=== PATIENT | female | born 1965 | race Caucasian/White ===

== ENCOUNTER 2018-06-08 15:52 | Emergency (ER) | payer BC ==
--- NOTE | 2018-06-08 17:08 | EDM.PDOC ---
ED HPI GENERAL MEDICAL PROBLEM - General Chief Complaint: Lower Extremity Injury/Pain Stated Complaint: LEFT FOOT INJURY Time Seen by Provider: 06/08/18 16:47 Source of Information: Reports: Patient History Limitations: Reports: No Limitations - History of Present Illness INITIAL COMMENTS - FREE TEXT/NARRATIVE: 52-year-old female presents for evaluation and treatment of injury to the left foot. Patient reports last night she had a few drinks. Reports she was walking around her house when she jammed her left foot into a door frame. She is reporting pain with ambulation. She has also appreciated bruising and swelling to the left foot fifth digit and distal metatarsal. She denies any numbness or tingling. No previous injury to the left foot or ankle. Location: Reports: Lower Extremity, Left Left Feet Pain Score (Numeric/FACES): 9 Past Medical History Other [employer] History: hysterectomy and 3 c sections - Past Surgical History Musculoskeletal Surgical History: Reports: Other (See Below) Other Musculoskeletal Surgeries/Procedures:: 2 back fusions and carpal tunnel surgery Social & Family History - Tobacco Use Smoking Status *Q: Never Smoker - Caffeine Use Caffeine Use: Reports: Coffee - Recreational Drug Use Recreational Drug Use: No Review of Systems - Review of Systems Review Of Systems: See Below Musculoskeletal: Reports: Foot Pain (left foot) Skin: Reports: Bruising (left foot 5th phalnex and distal 5th metatarsal). Denies: Wound Neurological: Reports: Difficulty Walking (due to left foot pain). Denies: Numbness, Tingling ED EXAM, GENERAL - Physical Exam Exam: See Below Exam Limited By: No Limitations General Appearance: Alert, WD/WN, No Apparent Distress Respiratory/Chest: No Respiratory Distress Cardiovascular: Normal Peripheral Pulses, Regular Rate, Rhythm Peripheral Pulses: 2+: Posterior Tibial (L), Posterior Tibial (R), Dorsalis Pedis (L), Dorsalis Pedis (R) Extremities: Normal Capillary Refill, Joint Swelling (left foot 5th digit and distal 5th metatarsal), Other (tenderness to palpation to the left foot 5th digit and the distal 5th metatarsal) Neurological: Alert, Oriented, Normal Cognition Psychiatric: Normal Affect, Normal Mood Skin Exam: Warm, Dry, Normal Color Course - Vital Signs Last Recorded V/S: Last Vital Signs Temp 98.7 F 06/08/18 16:01 Pulse 83 06/08/18 16:01 Resp 14 06/08/18 16:01 BP 111/65 06/08/18 16:01 Pulse Ox 99 06/08/18 16:01 - Orders/Labs/Meds Orders: Active Orders 24 hr Category Date Time Status Foot Comp Min 3V Lt [CR] Stat Exams 06/08/18 16:34 Taken - Radiology Interpretation Free Text/Narrative:: xray of the left foot shows a nondisplaced fracture to the proximal phalanx of the left foot 5th digit - Re-Assessments/Exams Free Text/Narrative Re-Assessment/Exam: 06/08/18 18:04 Reviewed the x-ray results with the patient. Recommend follow-up with orthopedics. They have crutches they will utilize at home. Also placed in a postop shoe. Discharge instructions as documented. Departure - Departure Time of Disposition: 18:04 Disposition: Home, Self-Care 01 Condition: Good Clinical Impression: Toe fracture, left Qualifiers: Encounter type: initial encounter Toe: lesser toe Phalanx: proximal Fracture alignment: nondisplaced - Discharge Information *PRESCRIPTION DRUG MONITORING PROGRAM REVIEWED*: No *COPY OF PRESCRIPTION DRUG MONITORING REPORT IN PATIENT [place]ORRIE: No Instructions: Toe Fracture Referrals: Marbin Powers MD [Primary Care Provider] - Raúl Brown MD [Physician] - Forms: ED Department Discharge, ED Return to Work/School Form Additional Instructions: Ice and elevate the areas much as you were able to. Use the crutches and the postop shoe for your comfort. Follow-up with orthopedics within 2 weeks for recheck of your symptoms. Recommend Dr. He at the [facility]. Call [phone] to schedule him. May also follow-up with Dr. Tee at [place]. Call [phone] to schedule with him. [id number] Tylenol or Motrin seen for pain. For pain not relieved by Tylenol or Motrin may take also take Percocet that you have at home for severe pain. Please return to the ER if your symptoms change or worsen. - My Orders Last 24 Hours: My Active Orders 06/08/18 16:34 Foot Comp Min 3V Lt [CR] Stat - Assessment/Plan Last 24 Hours: My Active Orders 06/08/18 16:34 Foot Comp Min 3V Lt [CR] Stat
--- NOTE | 2018-06-10 14:07 | CR ---
Left foot: Four views of the left foot were obtained. Comparison: No previous foot exam. Fracture noted within the proximal shaft and base of the proximal phalanx of the fifth toe. Alignment is anatomic. No additional fracture or other abnormality is seen. Impression: 1. Nondisplaced fracture involving the proximal phalanx of the left fifth toe as noted above. Diagnostic code #3
== END 2018-06-08 18:59 | disposition home or self-care (01) ==
LOC: JD.ED 15:52
DX: S92.515A Nondisplaced fracture of proximal phalanx of left lesser toe(s), initial encounter for closed fracture (principal); W23.0XXA Caught, crushed, jammed, or pinched between moving objects, initial encounter
CPT/HCPCS: 73630-26-LT; 73630-LT; 99283

== ENCOUNTER 2018-12-21 19:25 | Emergency (ER) | payer SELFPAY ==
--- NOTE | 2018-12-21 19:45 | EDM.PDOC ---
ED HPI GENERAL MEDICAL PROBLEM - General Chief Complaint: Lower Extremity Injury/Pain Stated Complaint: right side hip pain Time Seen by Provider: 12/21/18 19:45 Source of Information: Reports: Patient, RN Notes Reviewed - History of Present Illness INITIAL COMMENTS - FREE TEXT/NARRATIVE: 53-year-old lady comes in with right hip pain. She states she's been having trouble on and off with this since last "July". There is been giving her more trouble again the last several weeks. She states she has had recent x-rays of her hip and also had a CT of her abdomen pelvis about 2 weeks ago. The pain this evening is located outside area of the right hip but then also does radiate toward the right groin. The pain is worse with motion. She states that the prior x-rays "looked okay. Provider is not sure what is causing the discomfort. She does have occasional radiation of pain down the right leg. Not currently having pain radiating to the leg. No peripheral numbness tingling or weakness. No recent injury. Right Hip Pain Score (Numeric/FACES): 10 - Related Data Allergies Allergy/AdvReac Type Severity Reaction Status Date / Time cephalexin [From Keflex] Allergy Rash Verified 12/21/18 19:40 Past Medical History Cardiovascular History: Reports: Other (See Below) Other Cardiovascular History: leaky mitral valve Other [employer] History: hysterectomy and 3 c sections - Past Surgical History HEENT Surgical History: Reports: Adenoidectomy, Tonsillectomy Musculoskeletal Surgical History: Reports: Other (See Below) Other Musculoskeletal Surgeries/Procedures:: 2 back fusions and carpal tunnel surgery Social & Family History - Tobacco Use Smoking Status *Q: Never Smoker - Caffeine Use Caffeine Use: Reports: Coffee - Recreational Drug Use Recreational Drug Use: No Review of Systems - Review of Systems Review Of Systems: See Below Mouth/Throat: Reports: No Symptoms Respiratory: Reports: No Symptoms Cardiovascular: Denies: Chest Pain GI/Abdominal: Denies: Abdominal Pain, Nausea, Vomiting Musculoskeletal: Reports: Back Pain (Chronic), Joint Pain (Right hip) Skin: Denies: Rash Neurological: Denies: Numbness, Tingling, Weakness ED EXAM, GENERAL - Physical Exam Exam: See Below General Appearance: Alert, Anxious, Moderate Distress Eye Exam: Bilateral Eye: PERRL Throat/Mouth: Normal Inspection Head: Atraumatic Neck: Supple Respiratory/Chest: No Respiratory Distress, Lungs Clear, Normal Breath Sounds Cardiovascular: Regular Rate, Rhythm GI/Abdominal: Soft, Non-Tender Extremities: Other (Mild tenderness lateral aspect of the right hip, pelvis is nontender, good range of motion with very mild discomfort). No: Leg Pain ( Thigh knee lower leg all nontender), Increased Warmth, Redness Neurological: Alert, Oriented, No Motor/Sensory Deficits Skin Exam: Warm, Dry, Normal Color, No Rash Course - Vital Signs Last Recorded V/S: Last Vital Signs Temp 97.0 F 12/21/18 19:37 Pulse 61 12/21/18 19:37 Resp 18 12/21/18 19:37 BP 149/70 H 12/21/18 19:37 Pulse Ox 100 12/21/18 19:37 - Orders/Labs/Meds Meds: Medications Discontinued Medications Generic Name Dose Route Start Last Admin Trade Name Freq PRN Reason Stop Dose Admin Oxycodone/Acetaminophen 1 tab 12/21/18 20:14 12/21/18 20:34 Percocet 325-5 Mg PO 12/21/18 20:15 1 tab ONETIME ONE Administration Departure - Departure Time of Disposition: 20:27 Disposition: Home, Self-Care 01 Condition: Fair Clinical Impression: Hip pain Qualifiers: Laterality: right Qualified Code(s): M25.551 - Pain in right hip - Discharge Information Instructions: Hip Pain Referrals: Marbin Powers MD [Primary Care Provider] - Forms: ED Department Discharge Additional Instructions: Because you have had recent x-rays of your hip and have had recent CAT scan of your abdomen pelvis further diagnostics are not done here in the ED this evening. You have been given 1 Percocet pain pill orally. Do not drive within 6- 8 hours of taking Percocet. Prescription for more of the Percocet pain pills has been provided with the [facility] [facility]. You can take Tylenol for mild to moderate discomfort or take the Percocet for more severe pain. Do not take Tylenol and Percocet at the same time. Follow up with your regular medical provider in [place] in about 2-3 days for recheck, further evaluation, treatment as needed. A new course of physical therapy is strongly recommended. Also try alternating ice and heat as needed.
[2018-12-21] MEDS ORDERED: Acetaminophen/oxyCODONE 325-5 MG Tab PO ONE (20:14)
== END 2018-12-21 20:45 | disposition home or self-care (01) ==
LOC: JD.ED 19:25
DX: M25.551 Pain in right hip (principal); Z88.1 Allergy status to other antibiotic agents
CPT/HCPCS: 99283; A9270